=== PATIENT | female | born 1960 | race Caucasian/White ===

== ENCOUNTER 2017-10-14 08:32 | Day surgery (SDC) | payer MEDICAID ==
[~2017-10-14] VITALS: Ht 170.2 cm; Wt 125.9 kg
[~2017-10-14 08:32] MED LIST: FLUO-191 PO; SODIUM CHLORIDE 0.9% 1,000 ML IV ONE
[2017-10-14] MEDS ORDERED: SODIUM CHLORIDE 0.9% 1,000 ML IV ONE (08:51)
[2017-10-14] MEDS ORDERED: OXYGEN THERAPY IH SCH (10:45)
[2017-10-14] MEDS ORDERED: PROPOFOL 1% 20 ML VIAL IVP ONE (12:00)
== END 2017-10-14 11:50 | disposition home or self-care (01) ==
LOC: SURGERY 08:32
PROVIDERS: ATTEND Specialist
DX: K64.0 First degree hemorrhoids (principal); M34.1 CR(E)ST syndrome; E66.9 Obesity, unspecified; Z68.41 Body mass index [BMI] 40.0-44.9, adult; Z82.0 Family history of epilepsy and other diseases of the nervous system; Z79.1 Long term (current) use of non-steroidal anti-inflammatories (NSAID); Z86.010 Personal history of colon polyps; Z79.899 Other long term (current) drug therapy
CPT/HCPCS: 45398; J2704; J7030